=== PATIENT | male | born 1945 | race Caucasian/White ===

== ENCOUNTER 2016-11-23 13:10 | Inpatient (IN) ==
[2016-11-23] MEDS ORDERED: SODIUM CHLORIDE 0.9% 1,000 ML IV STA ×2 (14:02→18:49)
[2016-11-23] MEDS ORDERED: ONDANSETRON 4 MG/2 ML VIAL IV STA ×2 (14:02→15:41)
--- NOTE | 2016-11-23 14:26 | CT Report ---
CT abdomen pelvis wo con Indication: Diffuse abdominal tenderness with rebound. No bowel sounds. CT ABDOMEN AND PELVIS WITHOUT CONTRAST DLP: 661 mGy*cm. One or more of the following dose reduction techniques was used: Automated exposure control, adjustment of the mA and/or kV according the patient size, or use of iterative reconstruction techniques. Comparison: None. Technique: Axial noncontrast CT images of the abdomen and pelvis were obtained. Abdomen: No small bowel dilatation shown with some scattered air-fluid levels present. Normal amount of stool and gas is shown the colon. There is diffuse inflammation surrounding the pancreas without free fluid or free air. Pancreatic parenchyma appears grossly unremarkable. Spleen is unremarkable. Absent contrast, the liver appears slightly heterogeneous. A 4 mm hypodensity in the left lobe is identified, and there are couple of calcifications as well. There is calcified debris in the gallbladder lumen. Gallbladder appears otherwise unremarkable. There is an 8 mm isodense lesion extending from the lateral portion of the right kidney, too small to further characterize. Additional hypodensities on both kidneys are present, likely cysts. The largest of these is on the left measuring 30 mm diameter. A single nonobstructing right kidney stone is present, 1 x 2 mm in size. Diffuse atheromatous disease of the aortoiliac system is present. No aneurysm. Normal appendix without inflammation. Normal heart size. 5 mm pulmonary nodule lateral left lung base noted. Bibasilar atelectasis present. There is some nodularity and a calcified granuloma within the posterior right lung base as well. The largest of these nodules is only 4 mm. Calcified granuloma lateral segment right middle lobe. Mild degenerative changes lower lumbar spine. Pelvis: Urinary bladder is contracted. Prostate is normal in size. Rectosigmoid colon appears grossly unremarkable. No free fluid or free air. No lymphadenopathy. Impression: 1. Diffuse inflammation surrounding the pancreas without evidence of pseudocyst formation, pancreatic lesion or duct dilatation. Leading differential is acute pancreatitis and clinical correlation necessary. 2. No bowel obstruction. At most, mild ileus. 3. Calcified cholelithiasis. 4. Diffusely heterogeneous liver with at least one hypodensity identified in the left lobe, [address] abdomen and pelvis with contrast. 5. 8 mm isodense lesion extending laterally from the mid right kidney, too small to further characterize. Favor hemorrhagic cyst. Additional bilateral renal cysts are identified. Three-month follow-up ultrasound or CT recommended. 6. Nonobstructing right nephrolithiasis. 7. Small bibasilar pulmonary nodules, none greater than 8 mm. Three-month follow-up necessary. PROCEDURE INTERPRETED AT [facility] DEPARTMENT OF RADIOLOGY Final Report Signed by: Luisito Mayo M.D.
[2016-11-23] MEDS ORDERED: ONDANSETRON 4 MG/2 ML VIAL ONE ×2 (14:33→15:26)
[2016-11-23 14:38] LABS: Hematocrit 44.9 VOL% (42.0-52.0); Hemoglobin 15.9 GM/DL (14.0-18.0); Immature Granulocytes % 0.3 %; Immature Granulocytes Absolute 0.02 #; Lymphocytes # 0.8 10*3/uL (1.4-4.0); Lymphocytes % 10.5 % (21.2-54.2); Mean Corpuscular HGB Conc 35.4 GM/DL (32-36); Mean Corpuscular Hemoglobin 30 PG (27-34); Mean Corpuscular Volume 83.5 FL (87-102); Monocytes # 0.4 10*3/uL (0.11-0.8); Monocytes % 5.7 % (1.7-12.7); Neutrophils # 6.4 10*3/uL (1.4-7.4); Neutrophils % 83.5 % (38.7-73.9); Platelet Count 222 T/CUMM (130-400); Red Blood Count 5.38 MC/CUMM (3.8-5.5); Red Cell Distribution Width 13.1 % (9.3-17.3); White Blood Count 7.7 T/CUMM (4-12)
[2016-11-23 15:07] LABS: Albumin 3.5 G/DL (3.4-5.0); Bilirubin,Total 2.3 MG/DL (0.2-1.0); Calcium 8.8 MG/DL (8.5-10.1); Osmolality,Calculated 279.4 MOS/KG (273-304); Potassium 3.8 MMOL/L (3.5-5.1); Total Protein 6.7 G/DL (6.4-8.3)
--- NOTE | 2016-11-23 15:17 | XRay Report ---
XR chest 1V portable Indication: Abdominal pain. Chest one view: Heart size is normal. Mediastinal contours unremarkable. No discrete infiltrates are shown. Pleural spaces are clear. Bony structures are maintained. Impression: No acute cardiopulmonary disease. PROCEDURE INTERPRETED AT [facility] DEPARTMENT OF RADIOLOGY Final Report Signed by: Luisito Mayo M.D.
[2016-11-23] MEDS ORDERED: HYDROmorphone 2 MG/1 ML VIAL ONE (15:26)
--- NOTE | 2016-11-23 15:37 | Emergency Department Note ---
Saji Rivas Manpreet, am scribing for, and in the presence of, Cullen Hamilton MD 14:09. Joy Rivas Phillip K, MD, personally performed the services described in this documentation, ascribed by Rich Lennon in my presence, and it is both accurate and complete 536 . Arrival - Arrival Chief Complaint: Abdominal / Flank Pain Stated Complaint: referred for transport from [facility] ED Nursing Triage Note: ABd pain with nausea and vomiting - right lower abd onset x 3 days - last bowel movement unknown no taking meds x 4-5 days - sent from [facility] for evaluation for possible bowel obstruction Mode of Arrival: Wheelchair Limitations: No Limitations Source: Patient Time Seen by Provider: 11/23/16 13:56 - History of Present Illness HPI Narrative: Pt is a 71 y/o male who presents to the ED with CC of Abd pain with N/V that began 3 days ago. Pt states his last BM was yesterday AM which was nml. Pt had another BM today which did not have anything. Pt had a fever yesterday of 100.4 F but recorded a body temperature of 98.1 F during triage. Pt c/o cough and worsening pain upon movement and coughing. Pt felt more pain on the bumps while en route to the ED. No other pains/complaints reported to the ED. Onset (ago): day(s) (3 Days) Consistency: constant Severity: moderate Severity scale (1-10): 3 Allergies/Adverse Reactions: Allergies Allergy/AdvReac Type Severity Reaction Status Date / Time gabapentin [From Neurontin] Allergy Severe RASH Verified 12/13/15 13:41 pregabalin [From Lyrica] Allergy Severe RASH Verified 12/13/15 13:41 Home Medications: Home Medications Medication Instructions Recorded Confirmed Type Amitriptyline [Elavil] 75 mg PO BEDTIME 11/23/16 11/23/16 History Baclofen [Baclofen] 10 mg PO TID 11/23/16 11/23/16 History Eszopiclone [Eszopiclone] 2 mg PO BEDTIME 11/23/16 11/23/16 History Furosemide [Furosemide] 40 mg PO DAILY 11/23/16 11/23/16 History Oxycodone HCl/Acetaminophen 1 each PO QID PRN 11/23/16 11/23/16 History [Oxycodone-Acetaminophen 10-325] Potassium Chloride 20 meq PO DAILY 11/23/16 11/23/16 History amLODIPine [Norvasc] 10 mg PO DAILY 11/23/16 11/23/16 History Review of System - Review of System 12 point system: reviewed and no additional remarkable complaints except as stated - Review of System Constitutional: Present: fever (Yesterday of 100.4 F). Absent: chills, diaphoresis Head/Ears/Nose/Throat: Absent: sore throat Respiratory: Present: cough (Dry cough). Absent: respiratory distress, wheezing Cardiovascular: Absent: chest pain, dyspnea on exertion Gastrointestinal: Present: abdominal pain, nausea, vomiting, constipation Genitourinary male: Absent: dysuria Musculoskeletal: Absent: arm pain, back pain, lower back pain, leg pain, neck pain, upper back pain Neurological: Absent: headache, weakness, numbness, paresthesias Medical,Surgical,& Family Hx - Medical History Cardio: History of: Hypertension Gastrointestinal: History of: GI Problems (colon cancer) Musculoskeletal: History of: Musculoskeletal Problems (chronic pain) - Social History Smoking Status: Never smoker Frequency of Alcohol Use: None Type of Drug Use: None Exam Vital Signs: Vital Signs Temperature 98.1 F 11/23/16 13:28 Pulse Rate 58 L 11/23/16 13:28 Respiratory Rate 20 11/23/16 13:28 Blood Pressure 160/82 11/23/16 13:28 O2 Sat by Pulse Oximetry 95 11/23/16 13:28 - General General appearance: alert - Head Head exam: Present: atraumatic, normocephalic, normal inspection - Eye Eye exam: Present: normal appearance, PERRL, EOMI - ENT ENT exam: Present: normal exam, normal oropharynx, mucous membranes moist, TM's normal bilaterally - Neck Neck exam: Present: normal inspection, full ROM, trachea midline. Absent: tenderness, thyromegaly - Chest Chest inspection: Present: normal inspection, symmetric chest wall rise. Absent : tenderness - Respiratory Respiratory exam: Present: normal lung sounds bilaterally. Absent: accessory muscle use - Cardiovascular Cardiovascular exam: Present: regular rate, normal rhythm, normal heart sounds. Absent: murmur, rubs, gallop - Abdominal Exam Abdominal exam: Present: soft, tenderness (Diffuse tenderness), rebound ( Rebound tenderness), diminished bowel sounds. Absent: distention, guarding, rigidity - Extremities Exam Extremities exam: Present: normal inspection, full ROM. Absent: tenderness - Back Exam Back exam: Present: normal inspection, full ROM. Absent: tenderness - Neurological Exam Neurological exam: Present: alert, oriented X3, CN II-XII intact, reflexes normal - Psychiatric Psychiatric exam: Present: normal affect, normal mood - Skin Skin exam: Present: warm, dry, intact, normal color. Absent: pallor Course Course Narrative: Patient discussed with the hospitalist. Results - Labs CBC & BMP: 11/23/16 14:18 11/23/16 14:18 Lab Results: I have reviewed the patients labs Labs: Laboratory Tests 11/23/16 14:18 WBC 7.7 RBC 5.38 Hgb 15.9 Hct 44.9 MCV 83.5 L MCH 30 MCHC 35.4 RDW 13.1 Plt Count 222 MPV 10.0 Neut % (Auto) 83.5 H Lymph % (Auto) 10.5 L Hutchinson % (Auto) 5.7 Eos % (Auto) 0.0 Baso % (Auto) 0.0 Neut # (Auto) 6.4 Lymph # (Auto) 0.8 L Hutchinson # (Auto) 0.4 Eos # (Auto) 0.0 Baso # (Auto) 0.0 Immature Gran % 0.3 Nucleated RBC % 0.0 Immature Gran # 0.02 Nucleated RBCs # 0.00 Immature Plt Fraction 0.0 Laboratory Tests 11/23/16 14:18 Sodium 140 Potassium 3.8 Chloride 104 Carbon Dioxide 30 Anion Gap 9.8 BUN 15 Creatinine 1.00 GFR Calculation 99 BUN/Creatinine Ratio 15.00 Glucose 106 Calculated Osmolality 279.4 Calcium 8.8 Total Bilirubin 2.30 H AST 453 H ALT 521 H Alkaline Phosphatase 273 H Total Protein 6.7 Albumin 3.5 Globulin 3.2 Albumin/Globulin Ratio 1.0 L Lipase 9307.0 H - Diagnostic Findings Procedure: Chest x-ray: report reviewed by me ("Chest X-ray: No acute cardiopulmonary disease."), CT Abdomen and Pelvis: report reviewed by me ("CT Abd/Pel w/o Con: 1. Diffuse inflammation surrounding the pancreas without evidence of pseudocyst formation, pancreatic lesion or duct dilation. Leading differential is acute pancreatitis and clinical correlation necessary. 2. No bowel obstruction. At most, mild ileus. 3. Calcified cholelithiasis. 4. Diffusely heterogeneous liver with at least one hypodensity identified in the left lobe, [address] abdomen and pelvis with contrast. 5. 8 mm isodense lesion extending laterally from the mid right kideny, too small to further characterize. Favor hemorrhagic cyst. Additional bilateral renal cysts are identified. Three-month follow-up ultrasound or CT recommended. 6. Nonobstructing right nephrolithiasis. 7. Small bibasilar pulmonary nodules, none greater than 8 mm. Three-month follow-up necessary.) Disposition Clinical Impression: Pancreatitis, Cholelithiasis Case discussed with: patient, patient's family Disposition: Still a Patient Condition: Guarded Additional Instructions: Admit to the hospitalist and consult GI and surgery.
[2016-11-23] MEDS ORDERED: HYDROmorphone 2 MG/1 ML VIAL IV STA (15:41)
[2016-11-23] MEDS ORDERED: ONDANSETRON 4 MG/2 ML VIAL IV PRN (16:43)
[2016-11-23] MEDS ORDERED: LORazepam 2 MG/1 ML VIAL IV PRN (16:43)
[2016-11-23] MEDS ORDERED: PROMETHAZINE 25 MG/1 ML VIAL IM PRN (16:43)
[2016-11-23] MEDS ORDERED: diphenhydrAMINE CAP 25 MG CAPSULE PO PRN (16:49)
[2016-11-23] MEDS ORDERED: ZALEPLON 5 MG CAPSULE PO PRN (16:49)
[2016-11-23] MEDS ORDERED: guaiFENesin/DM ER 600-30 MG TABLET PO PRN (16:49)
--- NOTE | 2016-11-23 17:01 | Hospitalist History & Physical ---
Assessment and Plan - Time spent with patient Time spent with patient: Greater than 30 minutes (1) Acute pancreatitis due to calculus of common bile duct Status: Acute Assessment and plan: 71-year-old white male with history of chronic pain, hypertension, and colon cancer admitted by the hospitalist service with acute pancreatitis with elevated LFTs. Patient's pancreatitis most likely gallstone in nature. He does have elevated LFTs. We will go ahead and consult Dr. Hightower from GI for ERCP. We will also have him evaluate the nodules found in the left lobe of the liver. Patient may need biopsy during cholecystectomy. Patient will be kept n.p.o. until his abdominal pain improves. He will be allowed ice chips and sips of water with his medicines. He has been started on aggressive IV fluids, antibiotics, pain, and nausea control. Patient already takes Percocet 4 times daily for his chronic back pain and so we will add Dilaudid for breakthrough pain. Can consult surgery in the morning for cholecystectomy once pancreatitis resolves. Patient also has some cough and congestion with coarseness in his chest to auscultation. We will go ahead and start some duo nebs and Flonase. Patient also found to have some pulmonary nodules on CT scan. Will discuss this with Dr. Harper to see if pulmonary consult is necessary. Dr. Harper we will see and examined patient and further recommendations to follow. Current Visit: Yes (2) Elevated liver enzymes Status: Acute Current Visit: Yes (3) Pulmonary nodules Status: Acute Current Visit: Yes (4) Cough Status: Acute Current Visit: Yes (5) Liver lesion, left lobe Status: Acute Current Visit: Yes (6) Kidney lesion Status: Acute Current Visit: Yes (7) Hypertension Status: Acute Current Visit: Yes (8) Chronic back pain Status: Acute Current Visit: Yes History of Present Illness Chief complaint: Abdominal pain History of present illness: Mr. Colbert is a 71 year old white male with history of chronic back pain, hypertension, and colectomy for colon cancer presenting to the ED with a 3 day history of abdominal pain associated with nausea and vomiting. Patient states he had a cold started about 2 weeks ago with it keeps getting worse and is moved to his chest. He states that his abdomen started hurting 2 or 3 days ago and he was nauseated and has been able to eat. Patient states he has been forcing his medicines down. Patient states he vomited this morning and went to a satellite clinic in [place]. Nurse practitioner there told him to go to the emergency room. Patient is afebrile and his white count is normal. He has elevated LFTs with a total bilirubin of 2.3, AST 453, ALT 521, and alkaline phosphatase 273. Patient's lipase is also elevated at 9307. A noncontrast CT done in the ED show acute pancreatitis without pseudocyst formation, mild ileus , cholelithiasis, hypodensity in the left lobe of the liver, lesion in the right kidney with a possible hemorrhagic cyst, nonobstructing right kidney stone , and small bibasilar pulmonary nodules. Upon exam patient is obviously nauseated and his abdomen is soft and very tender diffusely throughout the abdomen but worse in the right upper epigastric and left upper quadrants. Patient denies headache, chest pain, constipation or diarrhea, or lower extremity edema. Patient feels hot and dry and he is complaining of a cough and chest tightness when he coughs. Patient sees Dr. 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 Dr. Matthews is his general port practitioner. After discussion with Dr. Hamilton the ED physician and Dr. Harper the admitting hospitalist, it was agreed patient will be admitted for further evaluation and treatment. Patient's medicines have been reconciled and he is a full code. Home Medications Medication Instructions Recorded Confirmed Type Amitriptyline [Elavil] 75 mg PO BEDTIME 11/23/16 11/23/16 History Baclofen [Baclofen] 10 mg PO TID 11/23/16 11/23/16 History Eszopiclone [Eszopiclone] 2 mg PO BEDTIME 11/23/16 11/23/16 History Furosemide [Furosemide] 40 mg PO DAILY 11/23/16 11/23/16 History Oxycodone HCl/Acetaminophen 1 each PO QID PRN 11/23/16 11/23/16 History [Oxycodone-Acetaminophen 10-325] Potassium Chloride 20 meq PO DAILY 11/23/16 11/23/16 History amLODIPine [Norvasc] 10 mg PO DAILY 11/23/16 11/23/16 History Allergies Allergy/AdvReac Type Severity Reaction Status Date / Time gabapentin [From Neurontin] Allergy Severe RASH Verified 12/13/15 13:41 pregabalin [From Lyrica] Allergy Severe RASH Verified 12/13/15 13:41 Medical,Surgical,& Family Hx - Medical History Cardio: History of: Hypertension Gastrointestinal: History of: GI Problems (colon cancer) Musculoskeletal: History of: Musculoskeletal Problems (chronic pain) - Surgical History Abdominal Surgeries: Surgical HX of: Abdominal Surgery Orthopedic Surgeries: Surgical HX of;: Orthopedic Surgery - Family History Family History: Reports;: Family Heart Disease - Social History Smoking Status: Never smoker Frequency of Alcohol Use: None Type of Drug Use: None Marital Status: Lives With:: Alone Functional capacity: independent ambulation Review of systems: A complete 10 system review of systems was obtained and pertinent positives and negatives per HPI Exam - Constitutional Vitals: Period Temp Pulse Resp BP Sys/Garber Pulse Ox Last 24 Hr 98.1 F-98.1 F 51-58 18-20 157-162/81-86 93-95 Exam: Constitutional System: Mild distress. No tremulousness. Head: Normocephalic, atraumatic. Ears, Nose and Throat System: No evidence of Otitis or Mastoiditis. No epistaxis or discharge Eyes System: Pupils equal, round, and reactive. Extraocular muscles intact. Neck: Supple, without adenopathy, No jugular venous distention. No thyromegaly, neck mass, or prior surgery apparent. Respiratory System: Chest coarse left greater than right to auscultation. Cardiovascular System: Heart with regular rate and rhythm. No murmur. GI System: Abdomen soft, moderately tender diffusely throughout but worse in the right upper and left upper quadrants. Normo active bowel sounds present. Musculoskeletal System: limbs with no pedal edema. Full distal pulses. Neurological System: No discernable sensory deficit. No aphasia Psychiatric System: Conversation is rational Results - Labs CBC & BMP: 11/23/16 14:18 11/23/16 14:18 Lab Results: I have reviewed the past 24 hour labs - Diagnostic Findings Procedure: CT Abdomen and Pelvis: report reviewed by me (Diffuse inflammation around the pancreas without evidence of pseudocyst formation, pancreatic lesion or duct dilation correlating with acute pancreatitis. No bowel obstruction, mild ileus. Calcified cholelithiasis, diffusely heterogeneous liver with at least one hypodensity identified in the left lobe 4 mm in diameter. 8 mm isodense lesion extending laterally from the mid right kidney too small to further characterize. Favors hemorrhagic cyst. Additional bilateral renal cysts identified. Nonobstructing right nephrolithiasis. Small bibasilar pulmonary nodules) Quality Measures - VTE Contraindication to Pharmacological VTE Prophylaxis: High Risk of Bleeding
[2016-11-23 17:10] LABS: Apearance,Urine CLEAR (Clear); Bilirubin,Urine Negative (Negative); Blood, Urine Negative (Negative); Glucose,Urine (UA) Negative (Negative); Ketones,Urine 5 mg/dL (Negative); Nitrite,Urine Negative (Negative); Protein,Urine 30 MG/DL; RBC,Urine 1 /HPF (0-4); Urine Color Amber (Yellow); Urine Specific Gravity 1.019 (1.001-1.035); WBC,Urine 1 /HPF (0-6)
[2016-11-23 17:17] LABS: INR 1.1; PT Patient Result 11.3 SECS
[2016-11-23] MEDS: LACTATED RINGERS 1,000 ML IV SCH (18:21)
--- NOTE | 2016-11-23 18:26 | Ultrasound Report ---
US right upper quadrant Indication: Abdominal pain. ULTRASOUND ABDOMEN, limited Comparison: None Findings: Liver: Unremarkable Gallbladder: Multiple mobile stones are present. Positive sonographic Cole sign. 6 mm tall bladder wall. Common bile duct: 7 mm Pancreas: Unremarkable Right kidney: 12.9 cm length. No mass, cyst, calcification or obstruction Impression: Cholelithiasis with secondary findings of cholecystitis. 7 mm common bile duct is slightly dilated. PROCEDURE INTERPRETED AT [facility] DEPARTMENT OF RADIOLOGY Final Report Signed by: Luisito Mayo M.D.
[2016-11-23] MEDS: PANTOPRAZOLE 40 MG VIAL IV SCH (19:19)
[2016-11-23] MEDS: ALBUTEROL/IPRATROPIUM 3 ML NEB RESP TX SCH (19:20)
[2016-11-23] MEDS: amLODIPine 10 MG TABLET PO SCH (20:41)
[2016-11-23] MEDS: BACLOFEN 10 MG TABLET PO SCH (20:41)
[2016-11-23] MEDS: AMITRIPTYLINE 75 MG TABLET PO SCH (20:42)
[2016-11-23] MEDS: HYDROmorphone 2 MG/1 ML VIAL IV PRN (20:42)
[2016-11-23] MEDS: ZALEPLON 5 MG CAPSULE PO SCH (20:42)
[2016-11-23] MEDS: PIPERACILLIN/TAZOBACTAM 3,375 MG in SODIUM CHLORIDE 0.9% 100 ML IV SCH (20:42)
[2016-11-24] MEDS: LACTATED RINGERS 1,000 ML IV SCH ×3 (00:05→13:09)
[2016-11-24] MEDS: ALBUTEROL/IPRATROPIUM 3 ML NEB RESP TX SCH ×5 (00:27→20:19)
[2016-11-24] MEDS: PIPERACILLIN/TAZOBACTAM 3,375 MG in SODIUM CHLORIDE 0.9% 100 ML IV SCH ×2 (04:36→14:42)
[2016-11-24] MEDS: ACETAMINOPHEN 325 MG TABLET PO PRN ×4 (04:45→20:57)
[2016-11-24] MEDS: HYDROmorphone 2 MG/1 ML VIAL IV PRN ×3 (04:45→16:20)
[2016-11-24 07:35] LABS: Basophils % 0.2 % (0.0-0.8); Hematocrit 42.3 VOL% (42.0-52.0); Hemoglobin 14.5 GM/DL (14.0-18.0); Immature Granulocytes % 0.5 %; Immature Granulocytes Absolute 0.05 #; Lymphocytes # 0.8 10*3/uL (1.4-4.0); Lymphocytes % 8.4 % (21.2-54.2); Mean Corpuscular HGB Conc 34.3 GM/DL (32-36); Mean Corpuscular Hemoglobin 29 PG (27-34); Mean Corpuscular Volume 85.3 FL (87-102); Mean Platelet Volume 9.8 FL (9.6-12.0); Monocytes # 0.6 10*3/uL (0.11-0.8); Monocytes % 6.6 % (1.7-12.7); Neutrophils # 8.2 10*3/uL (1.4-7.4); Neutrophils % 84.3 % (38.7-73.9); Platelet Count 209 T/CUMM (130-400); Red Blood Count 4.96 MC/CUMM (3.8-5.5); Red Cell Distribution Width 13.1 % (9.3-17.3); White Blood Count 9.7 T/CUMM (4-12)
[2016-11-24 08:08] LABS: Bilirubin,Total 1.4 MG/DL (0.2-1.0); Magnesium 2.6 MG/DL (1.8-2.4); Osmolality,Calculated 278.4 MOS/KG (273-304); Potassium 3.7 MMOL/L (3.5-5.1); Total Protein 5.7 G/DL (6.4-8.3)
[2016-11-24] MEDS: FLUTICASONE 50 MCG NASAL SPRAY 16 GM BOTTLE BOTH NARES SCH (09:22)
[2016-11-24] MEDS: PANTOPRAZOLE 40 MG VIAL IV SCH (09:22)
[2016-11-24] MEDS: POTASSIUM CHLORIDE 20 MEQ TABLET PO SCH (09:23)
[2016-11-24] MEDS: BACLOFEN 10 MG TABLET PO SCH ×4 (09:23→20:58)
[2016-11-24] MEDS: amLODIPine 10 MG TABLET PO SCH (09:23)
[2016-11-24] MEDS: ONDANSETRON 4 MG/2 ML VIAL IV PRN ×2 (09:42→16:19)
--- NOTE | 2016-11-24 10:13 | Gastrointestinal Consult Note ---
<Lorene Valderrama - Last Filed: 11/24/16 11:23> Assessment and Plan (1) Abdominal pain Status: Acute Assessment and plan: 11/24-3 day history of abdominal pain with associated nausea and vomiting with findings of elevated LFTs and lipase. CT of abdomen without contrast as well as ultrasound findings noted as below. Febrile today at 101.1. Plan for to proceed with ERCP today. Plan an addendum to follow by Dr. Hightower. Current Visit: Yes History of Present Illness Chief complaint: Abdominal pain History of present illness: Mr. Colbert is a 71 year old male who was admitted to the hospital yesterday afternoon with 3 day history of moderate to severe abdominal pain with nausea vomiting. Patient's daughter is at bedside, who is a nurse, and assist in history taking. Patient is unable to provide very much information due to his acute nature of his pain at this time. Patient reportedly was in his usual state of health until 3 days ago when he had a fairly sudden onset of abdominal pain in his upper abdomen that radiated across and into his back pain. Shortly after onset of pain patient became nauseated had some episodes of vomiting as well. Patient has been unable to eat or drink anything due to the nausea. He denies any fever chills during that time prior to coming to the hospital. Patient was seen at a clinic and the nurse practitioner that time instructed him to come the emergency room due to the nature of his pain. Upon arrival to the emergency room, patient had a CT scan without contrast which showed diffuse inflammation of the pancreas without evidence of pseudocyst or ductal dilation, calcified cholelithiasis, 4 mm hypodensity area in the left lobe of the liver. Patient also had abdominal ultrasound which showed cholelithiasis with cholecystitis and common bile duct mildly dilated at 7 mm. Patient is also noted to have a bilirubin of 2.3, AST of 453, ALT 521, and alkaline phosphatase of 273. Patient also had a lipase of 9000 on admission however this is trended down today to 1600. LFTs are also noted to be trending downward at this time. Patient was admitted with no leukocytosis noted however he did run 101.1 temperature this morning. He is having moderate to severe abdominal pain with inability to assess patient well due to his pain level. Patient does have a history of colon cancer diagnosed in [address] Shannon at [facility] and underwent a colectomy by Dr. Headley with no follow-up radiation and chemotherapy. Reportedly his PET scan 6 months later was clear however he has had no repeat colonoscopy since this time. Home Medications Medication Instructions Recorded Confirmed Type Amitriptyline [Elavil] 75 mg PO BEDTIME 11/23/16 11/23/16 History Baclofen [Baclofen] 10 mg PO TID 11/23/16 11/23/16 History Eszopiclone [Eszopiclone] 2 mg PO BEDTIME 11/23/16 11/23/16 History Furosemide [Furosemide] 40 mg PO DAILY 11/23/16 11/23/16 History Oxycodone HCl/Acetaminophen 1 each PO QID PRN 11/23/16 11/23/16 History [Oxycodone-Acetaminophen 10-325] Potassium Chloride 20 meq PO DAILY 11/23/16 11/23/16 History amLODIPine [Norvasc] 10 mg PO DAILY 11/23/16 11/23/16 History Allergies Allergy/AdvReac Type Severity Reaction Status Date / Time gabapentin [From Neurontin] Allergy Severe RASH Verified 12/13/15 13:41 pregabalin [From Lyrica] Allergy Severe RASH Verified 12/13/15 13:41 Medical,Surgical,& Family Hx - Medical History Cardio: History of: Hypertension Gastrointestinal: History of: GI Problems (colon cancer) Musculoskeletal: History of: Musculoskeletal Problems (chronic pain) - Surgical History Abdominal Surgeries: Surgical HX of: Abdominal Surgery Orthopedic Surgeries: Surgical HX of;: Orthopedic Surgery - Family History Family History: Reports;: Family Heart Disease - Social History Smoking Status: Never smoker Frequency of Alcohol Use: None Type of Drug Use: None 12 point system: reviewed and no additional remarkable complaints except as stated - Constitutional Constitutional: Present: as per HPI, fever(s) - EENT Eyes: Present: as per HPI Ears: Present: as per HPI Nose, mouth and throat: Present: as per HPI - Cardiovascular Cardiovascular: Present: as per HPI - Respiratory Respiratory: Present: as per HPI - Gastrointestinal Gastrointestinal: Present: as per HPI, abdominal pain, nausea, vomiting - Genitourinary Genitourinary: Present: as per HPI - Musculoskeletal Musculoskeletal: Present: as per HPI, back pain - Neurological Neurological: Present: as per HPI - Psychiatric Psychiatric: Present: as per HPI - Endocrine Endocrine: Present: as per HPI - Hematologic/Lymphatic Hematologic/Lymphatic: Present: as per HPI Exam - Constitutional Vitals: Period Temp Pulse Resp BP Sys/Garber Pulse Ox Last 24 Hr 97.6 F-101.1 F 50-73 16-20 103-162/57-93 93-98 General appearance: normal weight, no acute distress - Head Head exam: Present: normal inspection, normocephalic - Eye Eye exam: Present: other (Lids and conjunctive are unremarkable). Absent: scleral icterus - ENT ENT exam: Present: normal exam, normal oropharynx - Neck Neck exam: Present: normal inspection - Respiratory Respiratory exam: Present: clear to auscultation bilaterally. Absent: rales, rhonchi, wheezes - Cardiovascular Cardiovascular exam: Present: regular rate and rhythm. Absent: diastolic murmur , JVD, systolic murmur - GI/Abdominal GI/Abdominal exam: Present: normal bowel sounds, soft. Absent: ascites, distended, mass, organomegaly, tenderness - Extremities Exam Extremities exam: Present: normal inspection, full ROM - Back Exam Back exam: Present: normal inspection - Neurological Exam Neurological exam: Present: alert, oriented X3 - Psychiatric Psychiatric exam: Present: normal affect, normal mood - Skin Skin exam: Present: normal color, warm, dry Results - Labs CBC & BMP: 11/24/16 07:16 11/24/16 07:16 Lab Results: I have reviewed the past 24 hour labs - Diagnostic Findings Procedure: CT Abdomen and Pelvis: report reviewed by me, Ultrasound: report reviewed by me Quality Measures - VTE Contraindication to Pharmacological VTE Prophylaxis: High Risk of Bleeding <Leo Hightower - Last Filed: 11/24/16 12:52> History of Present Illness History of present illness: Mr. Colbert is a 71 year old male Exam - Constitutional Vitals: Period Temp Pulse Resp BP Sys/Garber Pulse Ox Last 24 Hr 97.6 F-101.1 F 50-73 16- 103-162/57-93 93-98 Results - Labs CBC & BMP: 11/24/16 07:16 11/24/16 07:16
--- NOTE | 2016-11-24 11:12 | Hospitalist Progress Note ---
Assessment and Plan - Time spent with patient Time spent with patient: Greater than 30 minutes (1) Pancreatitis Status: Acute Current Visit: Yes (2) Cholelithiasis Status: Acute Current Visit: Yes (3) Acute pancreatitis due to calculus of common bile duct Status: Acute Current Visit: Yes (4) Elevated liver enzymes Status: Acute Current Visit: Yes (5) Pulmonary nodules Status: Acute Current Visit: Yes (6) Liver lesion, left lobe Status: Acute Current Visit: Yes (7) Kidney lesion Status: Acute Current Visit: Yes (8) Hypertension Status: Acute Current Visit: Yes (9) Abdominal pain Status: Acute Assessment and plan: Continue current pain management Send blood cultures, continue IV Zosyn which she is already been started. Gastroenterology follow-up, ERCP likely when more stable. Liver biopsy of nodules at some point since daughter does know what he do not to increase admission. IV fluid hydration while n.p.o., continue IV Protonix DVT prophylaxis Current Visit: Yes Hospitalist: Subjective Interval history: Being managed for acute gallstone pancreatitis, still significant amount of pain. Patient with known history of colon cancer, CT findings of liver nodules noted concerning for metastases, however daughter stated that she does not want any biopsy at this time even if he is going to have ERCP. Initially planned for possible ERCP today, but may not be having it done today Fever with T-max of 101.1F at about 4 AM today Exam - Constitutional Vitals: Period Temp Pulse Resp BP Sys/Garber Pulse Ox Last 24 Hr 97.6 F-101.1 F 50-73 16-20 103-162/57-93 93-98 Exam: Constitutional System: Drowsy after pain medication, arousable. Head: Normocephalic, atraumatic. Ears, Nose and Throat System: No no significant abnormal findings Eyes System: Pupils equal, round, and reactive. Extraocular muscles intact. Neck: Supple, without adenopathy, No jugular venous distention. No thyromegaly, neck mass, or prior surgery apparent. Respiratory System: Chest coarse left greater than right to auscultation. Cardiovascular System: Heart with regular rate and rhythm. No murmur. GI System: Abdomen soft, moderately tender diffusely throughout but worse in the right upper and left upper quadrants. Normo active bowel sounds present. Musculoskeletal System: limbs with no pedal edema. Full distal pulses. Neurological System: No discernable sensory deficit. No aphasia Psychiatric System: Conversation is rational Results - Labs CBC & BMP: 11/24/16 07:16 11/24/16 07:16 Lab Results: I have reviewed the past 24 hour labs - Diagnostic Findings Procedure: CT Abdomen and Pelvis: report reviewed by me, image reviewed by me, Ultrasound: report reviewed by me Quality Measures - VTE Contraindication to Pharmacological VTE Prophylaxis: High Risk of Bleeding
[2016-11-24] MEDS ORDERED: fentaNYL 100 MCG/2 ML VIAL ONE (12:47)
[2016-11-24] MEDS ORDERED: MIDAZOLAM 2 MG/2 ML VIAL ONE (12:47)
[2016-11-24] MEDS ORDERED: PROPOFOL 200 MG/20 ML VIAL IV ONE (12:55)
[2016-11-24] MEDS ORDERED: ONDANSETRON 4 MG/2 ML VIAL ONE (12:55)
[2016-11-24] MEDS ORDERED: LIDOCAINE 2% 5 ML VIAL ONE (12:55)
--- NOTE | 2016-11-24 13:18 | Operative Note ---
Date of procedure: 11/24/16 Pre-op diagnosis: Gallstone pancreatitis was suspected choledocholithiasis Procedure: Endoscopic retrograde cholangiopancreatography with sphincterotomy and balloon stone extraction. 71-year-old gentleman admitted with 3 day history of abdominal pain noted to have elevated lipase elevated liver test and suspicion for choledocholithiasis. Now for ERCP to further evaluate. Informed consent was obtained from the patient. He was sedated with MAC anesthesia per anesthesia protocol. Patient placed in prone position the Olympus flexible video duodenal scope was inserted blindly and the oral cavity advanced into the esophagus. Subsequently under direct vision was advanced through the esophagus stomach pylorus to the level of the duodenum. He has a small ampulla. Sphincterotome was utilized and the pancreatic duct was opacified with no findings in the head of the pancreas or body of the pancreas. We did not get any full pancreatogram was we are trying to limit contrast exposure. With some difficulty we were able to cannulate the common bile duct which findings of suspected choledocholithiasis with some refractive debris. No biliary obstruction was identified. Cystic duct was patent cholelithiasis was noted. It was elected to proceed with sphincterotomy and 8 mm sphincterotomy was performed uneventfully with good hemostasis. Subsequently a balloon catheter was inserted into the biliary tree and inflated 8 mm port out 2 with removal of some stone fragments. No residual stone debris was noted in the common bile duct. The procedure was terminated placed our procedure well his discharge recovery in good condition. Postop diagnosis: 1. Choledocholithiasis with successful ERCP sphincterotomy and balloon stone extraction. Will monitor for complications and recommend proceeding with cholecystectomy per surgery's schedule. Anesthesia: MAC Surgeon / Physician: Leo Hightower Estimated blood loss: none Specimens: none sent Condition: stable Disposition: post procedure unit Results - Labs CBC & BMP: 11/24/16 07:16 11/24/16 07:16 Discharge Plan - Discharge Medications No Action Potassium Chloride 20 meq PO DAILY Amitriptyline [Elavil] 75 mg PO BEDTIME Furosemide [Furosemide] 40 mg PO DAILY Eszopiclone [Eszopiclone] 2 mg PO BEDTIME Baclofen [Baclofen] 10 mg PO TID amLODIPine [Norvasc] 10 mg PO DAILY Oxycodone HCl/Acetaminophen [Oxycodone-Acetaminophen 10-325] 1 each PO QID PRN PRN Reason: Pain - Follow Up or Referral - Forms/Instructions
[2016-11-24] MEDS ORDERED: GLUCAGON 1 MG VIAL ONE (13:26)
--- NOTE | 2016-11-24 13:27 | Anesthesia Post-Op ---
Anesthesia Post OP - Post Ansesthetic Evaluation Patient seen in post op: Yes Resp: within normal limits CV: within normal limits Mental: within normal limits Temp: within normal limits [id number]: within normal limits Nausea and Vomiting: within normal limits Pain: within normal limits
--- NOTE | 2016-11-24 14:52 | Fluoroscopy Report ---
Exam: [place] ERCP w sphincterotomy Date: 11/24/2016 11:20 AM Indication: Elevated liver function test dilated CBD elevated lipase Comparison: Right upper quadrant sonogram 11/23/[address] scan same date Findings: 60 cc of contrast 5.22 minutes fluoroscopy time. Contrast was instilled with filling of the common bile duct. Left and right biliary radicals are demonstrated. The ducts are slightly dilated. There appears to be some filling defects present. Small amount of debris is present. Sphincterotomy was performed. Pancreatic duct was demonstrated with no obvious abnormalities. Only the proximal aspect of the pancreas duct was demonstrated. Fluoroscopy time provided to Dr. Leo Hightower M.D. A total of 16 images were obtained Impression: 1. Satisfactory sphincterotomy and balloon sweep with no significant residual debris present or stones in the common bile duct. PROCEDURE INTERPRETED AT [facility]PART[facility] OF RADIOLOG[facility] Final Report Signed by: Dr. Kingsley Kolb
[2016-11-24] MEDS: DEXTROSE 5% NACL 0.45% 1,000 ML IV SCH (15:05)
--- NOTE | 2016-11-24 15:29 | General Surgery Consult Note ---
Assessment and Plan (1) Abdominal pain Status: Acute Assessment and plan: This patient has evidence of biliary pancreatitis. ERCP was successful today with sphincterotomy and stone extraction. I have recommended interval cholecystectomy to the patient. I have discussed the risks, benefits, and alternatives of laparoscopic cholecystectomy with the patient and also the possibility of open cholecystectomy. The expected outcomes have been reviewed. In particular, I discussed the risk of bleeding, infection, hernias of the abdominal wall, injury to the intestines or liver, pancreatitis, dropped or retained stones in the abdomen, bile leak, and bile duct injury. The patient's questions have been answered. We will monitor the patient's pancreatitis and once it has resolved adequately we will plan on doing the laparoscopic cholecystectomy at that time. Current Visit: Yes History of Present Illness Chief complaint: Abdominal pain History of present illness: Mr. Colbert is a 71 year old male admitted with abdominal pain and nausea and vomiting. He had evidence of biliary pancreatitis and was admitted and placed on bowel rest. ERCP today demonstrated choledocholithiasis with successful sphincterotomy and stone retrieval. There were stones in the gallbladder seen on ERCP and the patient had secondary signs of gallbladder inflammation on prior ultrasound. Patient does have a history of colon cancer and had a [place] [address] Paddy wolf. There is a 4 mm area on his liver on the initial CT scan that it is unclear what it represents and the CT was done without IV contrast so it is difficult to completely characterize this. Home Medications Medication Instructions Recorded Confirmed Type Amitriptyline [Elavil] 75 mg PO BEDTIME 11/23/16 11/23/16 History Baclofen [Baclofen] 10 mg PO TID 11/23/16 11/23/16 History Eszopiclone [Eszopiclone] 2 mg PO BEDTIME 11/23/16 11/23/16 History Furosemide [Furosemide] 40 mg PO DAILY 11/23/16 11/23/16 History Oxycodone HCl/Acetaminophen 1 each PO QID PRN 11/23/16 11/23/16 History [Oxycodone-Acetaminophen 10-325] Potassium Chloride 20 meq PO DAILY 11/23/16 11/23/16 History amLODIPine [Norvasc] 10 mg PO DAILY 11/23/16 11/23/16 History Allergies Allergy/AdvReac Type Severity Reaction Status Date / Time gabapentin [From Neurontin] Allergy Severe RASH Verified 12/13/15 13:41 pregabalin [From Lyrica] Allergy Severe RASH Verified 12/13/15 13:41 Medical,Surgical,& Family Hx - Medical History Cardio: History of: Hypertension Neurology: No history of: Seizures Gastrointestinal: History of: GI Problems (colon cancer) Musculoskeletal: History of: Musculoskeletal Problems (chronic pain) - Surgical History Abdominal Surgeries: Surgical HX of: Abdominal Surgery Orthopedic Surgeries: Surgical HX of;: Orthopedic Surgery - Family History Family History: Reports;: Family Heart Disease - Social History Smoking Status: Never smoker Frequency of Alcohol Use: None Type of Drug Use: None - Constitutional Constitutional: Present: as per HPI - EENT Nose, mouth and throat: Present: as per HPI - Cardiovascular Cardiovascular: Present: as per HPI - Respiratory Respiratory: Present: as per HPI - Gastrointestinal Gastrointestinal: Present: as per HPI - Genitourinary Genitourinary: Present: as per HPI - Musculoskeletal Musculoskeletal: Present: as per HPI - Neurological Neurological: Present: as per HPI - Endocrine Endocrine: Present: as per HPI Hematologic/Lymphatic: Present: as per HPI Exam - Constitutional Vitals: Period Temp Pulse Resp BP Sys/Garber Pulse Ox Last 24 Hr 97.6 F-101.1 F 50-78 16-20 103-160/57-93 93-98 General appearance: no acute distress, over weight - Head Head exam: Present: normal inspection, normocephalic - Eye Eye exam: Present: EOMI. Absent: scleral icterus Pupils: Present: MIGUEL - ENT ENT exam: Present: normal exam Mouth exam: Present: normal external inspection, normal voice - Neck Neck exam: Present: normal inspection, trachea midline - Respiratory Respiratory exam: Present: clear to auscultation bilaterally. Absent: accessory muscle use, chest wall tenderness - Cardiovascular Cardiovascular exam: Present: RRR. Absent: systolic murmur, tachycardia - GI/Abdominal GI/Abdominal exam: Present: normal bowel sounds, guarding, tenderness (The patient is tender in the midepigastric region and right upper quadrant. No peritoneal signs. There is some voluntary guarding.), soft - Extremities Exam Extremities exam: Present: normal inspection, normal capillary refill - Back Exam Back exam: Present: normal inspection - Neurological Exam Neurological exam: Present: alert, oriented X3 Speech: Present: normal - Skin Skin exam: Present: normal color, warm Quality Measures - VTE Contraindication to Pharmacological VTE Prophylaxis: High Risk of Bleeding Results - Labs CBC & BMP: 11/24/16 07:16 11/24/16 07:16
--- NOTE | 2016-11-24 15:38 | XRay Report ---
XR chest 1V portable Indication: Wheezing. Shortness of breath. Chest one view: Comparison yesterday shows worsening interstitial prominence of both lungs diffusely, with bibasilar atelectasis and pulmonary hypoinflation now present. Cardiomegaly is stable. Central pulmonary arteries are slightly prominent. Impression: Pulmonary hypoinflation. Evidence of mild CHF decompensation. PROCEDURE INTERPRETED AT [facility] DEPARTMENT OF RADIOLOGY Final Report Signed by: Luisito Mayo M.D.
[2016-11-24] MEDS: ZALEPLON 5 MG CAPSULE PO SCH (20:57)
[2016-11-24] MEDS: AMITRIPTYLINE 75 MG TABLET PO SCH (20:58)
[2016-11-25] MEDS: PIPERACILLIN/TAZOBACTAM 3,375 MG in SODIUM CHLORIDE 0.9% 100 ML IV SCH ×4 (00:03→23:07)
[2016-11-25] MEDS: ONDANSETRON 4 MG/2 ML VIAL IV PRN ×5 (00:06→20:41)
[2016-11-25] MEDS: HYDROmorphone 2 MG/1 ML VIAL IV PRN ×5 (00:06→20:40)
[2016-11-25] MEDS: ALBUTEROL/IPRATROPIUM 3 ML NEB RESP TX SCH ×4 (01:07→19:38)
[2016-11-25] MEDS: ACETAMINOPHEN 325 MG TABLET PO PRN ×4 (06:23→23:39)
[2016-11-25 06:35] LABS: Albumin 2.7 G/DL (3.4-5.0); Bilirubin,Total 2.5 MG/DL (0.2-1.0); Calcium 8.5 MG/DL (8.5-10.1); Osmolality,Calculated 275.5 MOS/KG (273-304); Potassium 3.9 MMOL/L (3.5-5.1); Total Protein 5.7 G/DL (6.4-8.3)
[2016-11-25 07:12] LABS: Basophils % 0.2 % (0.0-0.8); Hemoglobin 14.4 GM/DL (14.0-18.0); Immature Granulocytes % 0.4 %; Immature Granulocytes Absolute 0.04 #; Lymphocytes # 0.8 10*3/uL (1.4-4.0); Lymphocytes % 7.6 % (21.2-54.2); Mean Corpuscular HGB Conc 33.5 GM/DL (32-36); Mean Corpuscular Hemoglobin 29 PG (27-34); Mean Corpuscular Volume 86.9 FL (87-102); Mean Platelet Volume 10.6 FL (9.6-12.0); Monocytes % 8.7 % (1.7-12.7); Neutrophils # 9.1 10*3/uL (1.4-7.4); Neutrophils % 83.1 % (38.7-73.9); Platelet Count 217 T/CUMM (130-400); Red Blood Count 4.95 MC/CUMM (3.8-5.5); Red Cell Distribution Width 13.2 % (9.3-17.3); White Blood Count 10.9 T/CUMM (4-12)
[2016-11-25] MEDS: FLUTICASONE 50 MCG NASAL SPRAY 16 GM BOTTLE BOTH NARES SCH (09:54)
[2016-11-25] MEDS: amLODIPine 10 MG TABLET PO SCH (09:54)
[2016-11-25] MEDS: POTASSIUM CHLORIDE 20 MEQ TABLET PO SCH (09:55)
[2016-11-25] MEDS: BACLOFEN 10 MG TABLET PO SCH ×3 (09:56→20:53)
[2016-11-25] MEDS: PANTOPRAZOLE 40 MG VIAL IV SCH (09:57)
--- NOTE | 2016-11-25 09:57 | Hospitalist Progress Note ---
Assessment and Plan - Time spent with patient Time spent with patient: Greater than 30 minutes (1) Pancreatitis Status: Acute Current Visit: Yes (2) Cholelithiasis Status: Acute Current Visit: Yes (3) Acute pancreatitis due to calculus of common bile duct Status: Acute Current Visit: Yes (4) Elevated liver enzymes Status: Acute Current Visit: Yes (5) Pulmonary nodules Status: Acute Current Visit: Yes (6) Liver lesion, left lobe Status: Acute Current Visit: Yes (7) Kidney lesion Status: Acute Current Visit: Yes (8) Hypertension Status: Acute Current Visit: Yes (9) Abdominal pain Status: Acute Assessment and plan: Continue pain management, IV fluids. Follow blood cultures, continue IV Zosyn and adjust antibiotic as needed with culture report. Gastroenterology follow-up, status post ERCP, report reviewed. Surgery follow-up with possible cholecystectomy at some point. Liver biopsy of nodules at some point if still present repeat CT scan with contrast. Continue IV fluid hydration while n.p.o., continue IV Protonix DVT prophylaxis Current Visit: Yes Hospitalist: Subjective Interval history: Had ERCP and sphincterotomy done yesterday, seems to be improving in terms of pain. LFTs are trending down as well. Surgery impute appreciated, plan for cholecystectomy future. Low-grade fever is persisting, cultures are pending. Exam - Constitutional Vitals: Period Temp Pulse Resp BP Sys/Garber Pulse Ox Last 24 Hr 97.7 F-102.2 F 63-78 16-20 101-151/56-77 93-99 Exam: Constitutional System: Drowsy after pain medication, arousable. Head: Normocephalic, atraumatic. Ears, Nose and Throat System: No no significant abnormal findings Eyes System: Pupils equal, round, and reactive. Extraocular muscles intact. Neck: Supple, without adenopathy, No jugular venous distention. No thyromegaly, neck mass, or prior surgery apparent. Respiratory System: Chest coarse left greater than right to auscultation. Cardiovascular System: Heart with regular rate and rhythm. No murmur. GI System: Abdomen soft, moderately tender diffusely throughout but worse in the right upper and left upper quadrants. Normo active bowel sounds present. Musculoskeletal System: limbs with no pedal edema. Full distal pulses. Neurological System: No discernable sensory deficit. No aphasia Psychiatric System: Conversation is rational Results - Labs CBC & BMP: 11/25/16 04:53 11/25/16 04:53 Lab Results: I have reviewed the past 24 hour labs Quality Measures - VTE Contraindication to Pharmacological VTE Prophylaxis: High Risk of Bleeding
--- NOTE | 2016-11-25 17:54 | General Surgery Progress Note ---
Assessment and Plan (1) Abdominal pain Status: Acute Assessment and plan: The patient has resolving pancreatitis but is still having significant tenderness although his lipase is normal. His bilirubin is going up and this is likely due to swelling related to his sphincterotomy. I have recommended to the family that we wait another day for some of his pancreatitis and swelling to go down and possibly perform laparoscopic cholecystectomy tomorrow or may even need to delay until Sunday based on his lab work and clinical exam tomorrow. Continue n.p.o. and repeat labs in the morning Current Visit: Yes Subjective Patient reports: Present: no new complaints, feels better, still having pain, pain is less, fever (Low-grade temps overnight) Exam - Constitutional Vitals: Period Temp Pulse Resp BP Sys/Garber Pulse Ox Last 24 Hr 97.7 F-101.2 F 69-80 16-20 101-146/56-70 94-99 General appearance: no acute distress, over weight - Head Head exam: Present: normal inspection, normocephalic - Eye Eye exam: Present: EOMI. Absent: scleral icterus Pupils: Present: MIGUEL - ENT ENT exam: Present: normal exam Mouth exam: Present: normal external inspection, normal voice - Neck Neck exam: Present: normal inspection, trachea midline - Respiratory Respiratory exam: Present: clear to auscultation bilaterally. Absent: accessory muscle use, chest wall tenderness - Cardiovascular Cardiovascular exam: Present: RRR. Absent: systolic murmur, tachycardia - GI/Abdominal GI/Abdominal exam: Present: tenderness (The patient has pretty significant midepigastric tenderness and periumbilical tenderness. There is no peritoneal signs. It is less tender than yesterday overall.), soft - Extremities Exam Extremities exam: Present: normal inspection - Back Exam Back exam: Present: normal inspection - Neurological Exam Neurological exam: Present: alert, oriented X3 Speech: Present: normal - Skin Skin exam: Present: normal color, warm Results - Labs CBC & BMP: 11/25/16 04:53 11/25/16 04:53 Quality Measures - VTE Contraindication to Pharmacological VTE Prophylaxis: High Risk of Bleeding
[2016-11-25] MEDS: DEXTROSE 5% NACL 0.45% 1,000 ML IV SCH (20:44)
[2016-11-25] MEDS: AMITRIPTYLINE 75 MG TABLET PO SCH (20:53)
[2016-11-25] MEDS: ZALEPLON 5 MG CAPSULE PO SCH (20:53)
[2016-11-26] MEDS: ALBUTEROL/IPRATROPIUM 3 ML NEB RESP TX SCH ×4 (01:12→19:18)
[2016-11-26] MEDS: PIPERACILLIN/TAZOBACTAM 3,375 MG in SODIUM CHLORIDE 0.9% 100 ML IV SCH (06:22)
[2016-11-26 06:59] LABS: Albumin 2.4 G/DL (3.4-5.0); Bilirubin,Total 1.3 MG/DL (0.2-1.0); Calcium 8.2 MG/DL (8.5-10.1); Osmolality,Calculated 276.5 MOS/KG (273-304); Potassium 4.1 MMOL/L (3.5-5.1); Total Protein 5.7 G/DL (6.4-8.3)
[2016-11-26] MEDS: ONDANSETRON 4 MG/2 ML VIAL IV PRN ×3 (08:04→18:50)
[2016-11-26] MEDS: HYDROmorphone 2 MG/1 ML VIAL IV PRN ×4 (08:07→20:15)
--- NOTE | 2016-11-26 08:20 | Hospitalist Progress Note ---
Assessment and Plan - Time spent with patient Time spent with patient: Greater than 30 minutes (1) Pancreatitis Status: Acute Current Visit: Yes (2) Cholelithiasis Status: Acute Current Visit: Yes (3) Acute pancreatitis due to calculus of common bile duct Status: Acute Current Visit: Yes (4) Elevated liver enzymes Status: Acute Current Visit: Yes (5) Pulmonary nodules Status: Acute Current Visit: Yes (6) Liver lesion, left lobe Status: Acute Current Visit: Yes (7) Kidney lesion Status: Acute Current Visit: Yes (8) Hypertension Status: Acute Current Visit: Yes (9) Abdominal pain Status: Acute Assessment and plan: Continue pain management, IV fluids. Initial blood cultures are negative, but we will continue IV Zosyn. Gastroenterology follow-up, status post ERCP. LFTs trending down Surgery follow-up with possible cholecystectomy in the morning Liver biopsy of nodules at some point if still present on repeat CT scan with contrast. Continue IV fluid hydration while n.p.o., continue IV Protonix DVT prophylaxis Current Visit: Yes Hospitalist: Subjective Interval history: LFTs are continuing to trend down including bilirubin. I reviewed surgery note, tentative plan for laparoscopic cholecystectomy today. Fever has now subsided. Exam - Constitutional Vitals: Period Temp Pulse Resp BP Sys/Garber Pulse Ox Last 24 Hr 98.4 F-101.2 F 69-92 16-20 122-144/57-72 96-100 Exam: Constitutional System: Drowsy after pain medication, arousable. Head: Normocephalic, atraumatic. Ears, Nose and Throat System: No no significant abnormal findings Eyes System: No jaundice Neck: Supple, without adenopathy, No jugular venous distention. No thyromegaly, neck mass, or prior surgery apparent. Respiratory System: Chest coarse left greater than right to auscultation. Cardiovascular System: Heart with regular rate and rhythm. No murmur. GI System: Abdomen soft, tenderness has improved, still with some residual in the right upper quadrant. Normo active bowel sounds present. Musculoskeletal System: limbs with no pedal edema. Full distal pulses. Neurological System: No discernable sensory deficit. No aphasia Psychiatric System: Conversation is rational Results - Labs CBC & BMP: 11/25/16 04:53 11/26/16 05:42 Lab Results: I have reviewed the past 24 hour labs Quality Measures - VTE Contraindication to Pharmacological VTE Prophylaxis: High Risk of Bleeding Specialty Discharge - Follow Up or Referrals Follow up with: Jorge Scott MD [Physician] - 2 Weeks
[2016-11-26] MEDS ORDERED: BUPIVACAINE 0.25% 50 ML VIAL ONE (08:21)
[2016-11-26] MEDS ORDERED: TISSUE ADHESIVE 1 EACH APPLICATOR TOP ONE (08:22)
--- NOTE | 2016-11-26 08:44 | EKG Report ---
Stationary ECG Study 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
--- NOTE | 2016-11-26 09:03 | Gastrointestinal Progress Note ---
Assessment and Plan - Time spent with patient Time spent with patient: Greater than 30 minutes (1) Choledocholithiasis with acute cholecystitis Status: Acute Current Visit: Yes (2) Pancreatitis Status: Acute Current Visit: Yes (3) Other specified counseling Status: Acute Current Visit: Yes Exam (Progress Note) - Constitutional Vitals: Period Temp Pulse Resp BP Sys/Garber Pulse Ox Last 24 Hr 98.4 F-101.2 F 69-92 16-20 122-144/57-72 96-100 Results - Labs CBC & BMP: 11/25/16 04:53 11/26/16 05:42 Specialty Discharge - Follow Up or Referrals Follow up with: Jorge Scott MD [Physician] - 2 Weeks Note Addendum: Patient was in operating room when I went by to visit. Dr. Hightower will follow up with this patient tomorrow.
[2016-11-26] MEDS ORDERED: HYDROmorphone 2 MG/1 ML VIAL IM ONE ×2 (09:41→12:00)
[2016-11-26] MEDS ORDERED: HYDROmorphone 2 MG/1 ML VIAL ONE (09:43)
[2016-11-26] MEDS ORDERED: PROPOFOL 200 MG/20 ML VIAL IV ONE (10:06)
[2016-11-26] MEDS ORDERED: NEOSTIGMINE 10 MG/10 ML VIAL ONE ×2 (10:06→11:19)
[2016-11-26] MEDS ORDERED: LABETALOL 100 MG/20 ML VIAL IV ONE (10:06)
[2016-11-26] MEDS ORDERED: ROCURONIUM 100 MG/10 ML VIAL IV ONE (10:06)
[2016-11-26] MEDS ORDERED: GLYCOPYRROLATE 0.4 MG/2 ML VIAL ONE (10:06)
[2016-11-26] MEDS ORDERED: ONDANSETRON 4 MG/2 ML VIAL ONE (10:06)
[2016-11-26] MEDS: BACLOFEN 10 MG TABLET PO SCH ×3 (10:43→20:14)
--- NOTE | 2016-11-26 11:10 | Operative Note ---
Date of procedure: 11/26/16 Pre-op diagnosis: Biliary pancreatitis with acute cholecystitis Post-op diagnosis: same Procedure: Preoperative diagnosis Biliary pancreatitis Acute cholecystitis Postoperative diagnosis Same Procedures performed Laparoscopic cholecystectomy Findings Acute cholecystitis was seen. The critical view of safety was obtained prior to placing clips on the cystic duct and cystic artery. Complications None apparent Specimen Gallbladder Anesthesia GETA Blood loss 5 mL Indications Biliary pancreatitis with acute cholecystitis. The risks, benefits, and alternatives of the operation were discussed with the patient in detail, and the expected outcomes were reviewed. In particular, the risk of bowel injury, liver injury, bile duct leak and bile duct injury, as well as pancreatitis and retained or drop stones were discussed in detail. All the patient's questions were answered. She like to proceed with the operation. Description of procedure The patient was taken to the operating room and transferred to the operating table in the supine position. Pressure points were padded and SCDs were placed to bilateral lower extremities. General endotracheal anesthesia was administered. The abdomen was prepped chlorhexidine and draped sterilely. Preoperative antibiotics were administered, a timeout was performed. The abdomen was entered at Robb's point in the left upper quadrant with the Veress needle. The skin incision was made with an 11 blade scalpel after local anesthetic was administered. The abdominal wall skin was grasped with penetrating towel clips. A Veress needle was used to enter the peritoneal cavity confirmed by double click technique. Aspiration was negative. Saline drop test confirmed intraperitoneal location. The abdomen was insufflated to 15 mmHg with an initial insufflation pressure of 6 mmHg. The Veress needle was removed and an 11 mm trocar was placed blindly. The towel clip was removed. Diagnostic laparoscopy was performed. There is no evidence of Veress needle or trocar injury. There were extensive adhesions from the prior midline incision. The patient was placed in reverse Trendelenburg and left side rolled down position. Under direct visualization, and after local anesthetic was administered, 2 right subcostal 5 mm trochars were placed. Adhesions were taken down in the midline incision in order to expose the umbilicus and additional 5 mm trochars placed under direct visualization. The adhesions were taken down with scissors and cautery. The camera was then moved to the supraumbilical trocar site. The gallbladder was grasped at the fundus and infundibulum. The cystic plate peritoneum was dissected into the critical view of safety was obtained. The cystic duct and cystic artery were clipped twice initially and once laterally and divided laparoscopically with scissors between clips. Gallbladder was removed from the gallbladder fossa using hook electrocautery. The gallbladder was placed in a Endo Catch retrieval bag through the 11 mm trocar and removed through the trocar with some extension of the fascial incision due to the stones in the size of the gallbladder. The gallbladder fossa was suction irrigated until the effluent was clear. The midepigastric fascial opening was closed with a 0 Vicryl mzyyzi-al-zxmxk suture that was passed with a laparoscopic suture passer. The CO2 was released from the abdomen and the trochars were removed. The skin incisions were closed with 4-0 Monocryl subcuticular suture and sterile skin glue. The patient was awakened from anesthesia and transferred to recovery. Postoperative plan Advance diet as tolerated Pain control Anesthesia: NICKA, local Surgeon / Physician: Jorge Scott Estimated blood loss: minimal Specimens: other (gallbladder) Condition: stable Disposition: PACU Results - Labs CBC & BMP: 11/25/16 04:53 11/26/16 05:42 Discharge Plan - Discharge Data Driving: other (Do not drive or operate heavy machinery for at least 24 hours and after you are off of narcotic pain medications.) Contact your physician if you experience:: fever over 101, Difficulty voiding, Redness or swelling, Nausea/Vomiting, Shortness of breath, Bleeding, pain uncontrolled by pain medications Wound / Dressing Care Instructions: It is okay to shower. Do not scrub the incision aggressively or submerge it under water. - Discharge Medications Changed Oxycodone HCl/Acetaminophen [Oxycodone-Acetaminophen 10-325] 1 tablet PO QID PRN #20 tablet PRN Reason: Pain No Action Potassium Chloride 20 meq PO DAILY Amitriptyline [Elavil] 75 mg PO BEDTIME Furosemide [Furosemide] 40 mg PO DAILY Eszopiclone [Eszopiclone] 2 mg PO BEDTIME Baclofen [Baclofen] 10 mg PO TID amLODIPine [Norvasc] 10 mg PO DAILY - Follow Up or Referral Follow Up: Jorge Scott MD [Physician] - 2 Weeks - Forms/Instructions
[2016-11-26] MEDS ORDERED: MIDAZOLAM 2 MG/2 ML VIAL ONE (11:19)
[2016-11-26] MEDS ORDERED: SEVOFLURANE 1 UNIT/15 MINUTE INH ONE (11:19)
[2016-11-26] MEDS ORDERED: LACTATED RINGERS 1,000 ML IV ONE (11:19)
[2016-11-26] MEDS ORDERED: fentaNYL 100 MCG/2 ML VIAL ONE (11:19)
[2016-11-26] MEDS ORDERED: ONDANSETRON 4 MG/2 ML VIAL IV PRN (11:34)
[2016-11-26] MEDS ORDERED: HYDROmorphone 2 MG/1 ML VIAL IV PRN (11:34)
[2016-11-26] MEDS ORDERED: LACTATED RINGERS 1,000 ML IV SCH ×2 (12:00)
--- NOTE | 2016-11-26 12:27 | Anesthesia Post-Op ---
Anesthesia Post OP - Post Ansesthetic Evaluation Patient seen in post op: Yes Resp: within normal limits CV: within normal limits Mental: within normal limits Temp: within normal limits [id number]-[id number]: within normal limits Nausea and Vomiting: within normal limits Pain: within normal limits
[2016-11-26] MEDS: POTASSIUM CHLORIDE 20 MEQ TABLET PO SCH (13:37)
[2016-11-26] MEDS: PANTOPRAZOLE 40 MG VIAL IV SCH (13:37)
[2016-11-26] MEDS: amLODIPine 10 MG TABLET PO SCH (13:37)
[2016-11-26] MEDS: FLUTICASONE 50 MCG NASAL SPRAY 16 GM BOTTLE BOTH NARES SCH (13:37)
[2016-11-26] MEDS: DEXTROSE 5% NACL 0.45% 1,000 ML IV SCH ×2 (19:52→20:14)
[2016-11-26] MEDS: ZALEPLON 5 MG CAPSULE PO SCH (20:14)
[2016-11-26] MEDS: AMITRIPTYLINE 75 MG TABLET PO SCH (20:14)
[2016-11-26] MEDS: ACETAMINOPHEN 325 MG TABLET PO PRN (23:36)
[2016-11-27] MEDS: ALBUTEROL/IPRATROPIUM 3 ML NEB RESP TX SCH ×4 (00:37→20:05)
[2016-11-27] MEDS: HYDROmorphone 2 MG/1 ML VIAL IV PRN ×2 (01:50→10:03)
[2016-11-27] MEDS: ONDANSETRON 4 MG/2 ML VIAL IV PRN ×2 (01:52→10:04)
[2016-11-27] MEDS: POTASSIUM CHLORIDE 20 MEQ TABLET PO SCH (10:03)
[2016-11-27] MEDS: amLODIPine 10 MG TABLET PO SCH (10:03)
[2016-11-27] MEDS: DOCUSATE SODIUM 100 MG CAPSULE PO PRN (10:03)
[2016-11-27] MEDS: FLUTICASONE 50 MCG NASAL SPRAY 16 GM BOTTLE BOTH NARES SCH (10:07)
[2016-11-27] MEDS: BACLOFEN 10 MG TABLET PO SCH ×3 (10:07→20:26)
[2016-11-27] MEDS: PANTOPRAZOLE 40 MG VIAL IV SCH (10:08)
--- NOTE | 2016-11-27 10:26 | Hospitalist Progress Note ---
Assessment and Plan (1) Fever Status: Acute Assessment and plan: Could be just postoperative fever but I will check urine Current Visit: Yes (2) Acute pancreatitis due to calculus of common bile duct Status: Acute Assessment and plan: Lipase level improved and was normal yesterday Current Visit: Yes (3) Choledocholithiasis with acute cholecystitis Status: Acute Assessment and plan: Patient is status post ERCP and cholecystectomy as mentioned above. Reported nausea today I will check KUB continue to diet have diet as tolerated and as needed antinausea medication Current Visit: Yes (4) Elevated liver enzymes Status: Acute Assessment and plan: Due to biliary pancreatitis has been improving Current Visit: Yes (5) Hypertension Status: Chronic Assessment and plan: Controlled Current Visit: Yes Hospitalist: Subjective Interval history: Mr. Colbert is a 71-year-old male with history of hypertension colon cancer and chronic pain admitted with the abdominal pain associated with nausea and vomiting he was diagnosed to have acute biliary pancreatitis he had choledocholithiasis he underwent ERCP with the sphincterectomy and the stone extraction on 11/24/2016. Patient yesterday had Laparoscopic cholecystectomy. Patient reported nausea was ad alvina. able to tolerate little for the last night he had fever last night but has been afebrile since then reported some strong odor to urine. He has no bowel movement but passing gases Exam - Constitutional Vitals: Period Temp Pulse Resp BP Sys/Garber Pulse Ox Last 24 Hr 96.7 F-102.9 F 57-78 16-24 105-149/59-85 91-100 General appearance: no acute distress - Respiratory Respiratory exam: Present: clear to auscultation bilaterally. Absent: rales, rhonchi - Cardiovascular Cardiovascular exam: Present: regular rate and rhythm. Absent: tachycardia - GI/Abdominal GI/Abdominal exam: Present: normal bowel sounds, distended, tenderness ( Tenderness abdomen but no rigidity ), soft - Neurological Exam Neurological exam: Present: alert, oriented X3 Results - Labs CBC & BMP: 11/25/16 04:53 11/26/16 05:42 Lab Results: I have reviewed the past 24 hour labs Quality Measures - VTE Contraindication to Pharmacological VTE Prophylaxis: High Risk of Bleeding Specialty Discharge - Follow Up or Referrals Follow up with: Jorge Scott MD [Physician] - 2 Weeks
--- NOTE | 2016-11-27 11:03 | Gastrointestinal Progress Note ---
<Lorene Valderrama Cole - Last Filed: 11/27/16 11:01> Assessment and Plan (1) Abdominal pain Status: Acute Assessment and plan: 11/27-status post laparoscopic cholecystectomy. Decreased bowel sounds with abdominal discomfort. KUB pending this morning. Lipase unremarkable last check , LFTs trending downward. Febrile overnight now resolved. UA pending. Plan an addendum to follow by Dr. Hightower. 11/24-3 day history of abdominal pain with associated nausea and vomiting with findings of elevated LFTs and lipase. CT of abdomen without contrast as well as ultrasound findings noted as below. Febrile today at 101.1. Plan for to proceed with ERCP today. Plan an addendum to follow by Dr. Hightower. Current Visit: Yes Gastroenterology - PN: Subj Interval history: CC: Choledocholithiasis with acute cholecystitis Patient is seen, awake and alert with daughter at bedside. States he did not feel well overnight and was complaining of increased abdominal pain with nausea. He was also noted to be febrile with a temperature up to 102.9 last night however is afebrile this morning. No lab work noted to be repeated today. On his last labs his lipase had normalized. LFTs are slowly trending downward. He is status post laparoscopic cholecystectomy on yesterday. Patient states he is having some colitis but he has not had a bowel movement since last Sunday. He has a KUB ordered for this morning due to abdominal discomfort and decreased bowel sounds. Abdomen is soft, tender to palpation. ROS: Denies shortness breath or chest pain Exam (Progress Note) - Constitutional Vitals: Period Temp Pulse Resp BP Sys/Garber Pulse Ox Last 24 Hr 96.7 F-102.9 F 57-78 16-24 105-149/59-85 91-100 General appearance: normal weight, no acute distress - Head Head exam: Present: normal inspection, normocephalic - Eye Eye exam: Present: other (Lids and conjunctive are unremarkable). Absent: scleral icterus - ENT ENT exam: Present: normal exam, normal oropharynx - Neck Neck exam: Present: normal inspection - Respiratory Respiratory exam: Present: clear to auscultation bilaterally. Absent: rales, rhonchi, wheezes - Cardiovascular Cardiovascular exam: Present: regular rate and rhythm. Absent: diastolic murmur , JVD, systolic murmur - GI/Abdominal GI/Abdominal exam: Present: normal bowel sounds, soft. Absent: ascites, distended, mass, organomegaly, tenderness - Extremities Exam Extremities exam: Present: normal inspection, full ROM - Back Exam Back exam: Present: normal inspection - Neurological Exam Neurological exam: Present: alert, oriented X3 - Psychiatric Psychiatric exam: Present: normal affect, normal mood - Skin Skin exam: Present: normal color, warm, dry Results - Labs CBC & BMP: 11/25/16 04:53 11/26/16 05:42 Lab Results: I have reviewed the past 24 hour labs Specialty Discharge - Follow Up or Referrals Follow up with: Jorge Scott MD [Physician] - 2 Weeks <Leo Hightower - Last Filed: 11/27/16 17:22> Exam (Progress Note) - Constitutional Vitals: Period Temp Pulse Resp BP Sys/Garber Pulse Ox Last 24 Hr 96.7 F-102.9 F 58-78 15-24 105-142/59-84 91-99 Results - Labs CBC & BMP: 11/27/16 12:09 11/27/16 12:10
[2016-11-27] MEDS: DEXTROSE 5% NACL 0.45% 1,000 ML IV SCH (11:15)
--- NOTE | 2016-11-27 11:49 | XRay Report ---
XR KUB Clinical Information: Abdominal Pain possible ileus or small bowel obstruction Comparison: CT abdomen pelvis dated 11/23/2016 Findings: Diffuse colonic dilatation is noted throughout the abdomen/pelvis, which is primarily gas-filled. Minimal stool is noted within the right hemicolon. There is also mild small bowel dilatation centrally although the small bowel is otherwise poorly opacified/visualized with air. There is no definite free air identified. Cholecystectomy clips are noted. No abnormal focal soft tissue masses or calcific densities are identified in the abdomen or pelvis. Lung bases appear predominantly clear. There is no acute osseous abnormality. No suspicious osseous lesions are identified. Impression: Mild diffuse gas-filled colon, which is nonspecific but may represent a fecal stasis/constipation pattern. No definite small bowel obstruction or free air. Continued clinical and imaging follow-up is recommended. PROCEDURE INTERPRETED AT [facility] DEPARTMENT OF RADIOLOGY Final Report Signed by: Josué Tomlin
--- NOTE | 2016-11-27 12:02 | Event Note ---
General Surgery Progress Note Chief complaint This patient is a 71-year-old man admitted with biliary pancreatitis and cholecystitis treated with ERCP and sphincterotomy followed by an interval laparoscopic cholecystectomy on 11/26/2016 Interval history Patient had a fever last night 102.9. He is afebrile this morning. His vital signs are normal this morning. He tolerated dinner last night but is having a little bit of nausea this morning and he is more distended today. He is passing gas but has not had a bowel movement yet. Physical exam Patient is currently afebrile but did have fever to 102.9 last night. His vital signs are normal this morning Abdomen is distended and a little bit more tender than typical postoperative tenderness. There is a little bit of bruising around the midepigastric incision but no erythema or drainage. Hypoactive bowel sounds are present. Labs Pending Imaging KUB shows a gas-filled colon with some small bowel loops also have air in them consistent with ileus Assessment and plan We will check some labs today and continue IV fluids. Increase activity and weight adequate return of bowel function. Repeat labs again tomorrow
[2016-11-27 12:18] LABS: Basophils % 0.2 % (0.0-0.8); Hematocrit 39.5 VOL% (42.0-52.0); Hemoglobin 13.5 GM/DL (14.0-18.0); Immature Granulocytes % 0.3 %; Immature Granulocytes Absolute 0.03 #; Lymphocytes % 10.7 % (21.2-54.2); Mean Corpuscular HGB Conc 34.2 GM/DL (32-36); Mean Corpuscular Hemoglobin 30 PG (27-34); Mean Corpuscular Volume 87.4 FL (87-102); Mean Platelet Volume 9.5 FL (9.6-12.0); Monocytes # 0.9 10*3/uL (0.11-0.8); Monocytes % 9.6 % (1.7-12.7); Neutrophils # 7.5 10*3/uL (1.4-7.4); Neutrophils % 79.2 % (38.7-73.9); Platelet Count 228 T/CUMM (130-400); Red Blood Count 4.52 MC/CUMM (3.8-5.5); Red Cell Distribution Width 13.2 % (9.3-17.3); White Blood Count 9.5 T/CUMM (4-12)
[2016-11-27 12:52] LABS: Albumin 2.3 G/DL (3.4-5.0); Bilirubin,Total 1.1 MG/DL (0.2-1.0); Calcium 8.1 MG/DL (8.5-10.1); Osmolality,Calculated 274.8 MOS/KG (273-304); Potassium 4.3 MMOL/L (3.5-5.1); Total Protein 5.5 G/DL (6.4-8.3)
[2016-11-27 14:37] LABS: Apearance,Urine CLEAR (Clear); Bilirubin,Urine Negative (Negative); Blood, Urine Negative (Negative); Glucose,Urine (UA) Negative (Negative); Ketones,Urine Negative (Negative); Mucus,Urine Occasional /LPF (Occasional); Nitrite,Urine Negative (Negative); Protein,Urine Negative; RBC,Urine <1 /HPF (0-4); Squamous Epithelial Cell,Urine Occasional /HPF (0-10); Urine Color Yellow (Yellow); Urine Specific Gravity 1.011 (1.001-1.035); Urine Urobilinogen < 2.0 EU/DL (0.2-1.0); WBC,Urine 1 /HPF (0-6)
[2016-11-27] MEDS: oxyCODONE/ACETAMINOPHEN 5-325 MG TABLET PO PRN ×2 (14:50→18:25)
[2016-11-27] MEDS: AMITRIPTYLINE 75 MG TABLET PO SCH (20:26)
[2016-11-27] MEDS: ZALEPLON 5 MG CAPSULE PO SCH (20:26)
[2016-11-28] MEDS: HYDROmorphone 2 MG/1 ML VIAL IV PRN ×2 (01:01→13:09)
[2016-11-28] MEDS: DEXTROSE 5% NACL 0.45% 1,000 ML IV SCH (01:21)
[2016-11-28] MEDS: ALBUTEROL/IPRATROPIUM 3 ML NEB RESP TX SCH ×4 (01:33→18:50)
[2016-11-28 06:48] LABS: Basophils % 0.4 % (0.0-0.8); Hematocrit 41.4 VOL% (42.0-52.0); Hemoglobin 13.9 GM/DL (14.0-18.0); Immature Granulocytes % 0.4 %; Immature Granulocytes Absolute 0.03 #; Lymphocytes # 1.2 10*3/uL (1.4-4.0); Lymphocytes % 15.9 % (21.2-54.2); Mean Corpuscular HGB Conc 33.6 GM/DL (32-36); Mean Corpuscular Hemoglobin 29 PG (27-34); Mean Corpuscular Volume 87.7 FL (87-102); Mean Platelet Volume 9.4 FL (9.6-12.0); Monocytes # 0.8 10*3/uL (0.11-0.8); Monocytes % 10.3 % (1.7-12.7); Neutrophils # 5.5 10*3/uL (1.4-7.4); Platelet Count 251 T/CUMM (130-400); Red Blood Count 4.72 MC/CUMM (3.8-5.5); White Blood Count 7.6 T/CUMM (4-12)
[2016-11-28 07:31] LABS: Albumin 2.4 G/DL (3.4-5.0); Bilirubin,Direct 0.3 MG/DL (0.0-0.20); Bilirubin,Indirect 0.3 MG/DL (0.0-1.0); Bilirubin,Total 0.6 MG/DL (0.2-1.0); Total Protein 5.8 G/DL (6.4-8.3)
[2016-11-28] MEDS: FLUTICASONE 50 MCG NASAL SPRAY 16 GM BOTTLE BOTH NARES SCH (08:34)
[2016-11-28] MEDS: PANTOPRAZOLE 40 MG VIAL IV SCH (08:36)
[2016-11-28] MEDS: amLODIPine 10 MG TABLET PO SCH (08:36)
[2016-11-28] MEDS: BACLOFEN 10 MG TABLET PO SCH ×3 (08:36→21:19)
[2016-11-28] MEDS: POTASSIUM CHLORIDE 20 MEQ TABLET PO SCH (08:47)
[2016-11-28] MEDS: DOCUSATE SODIUM 100 MG CAPSULE PO PRN ×2 (08:47→21:19)
--- NOTE | 2016-11-28 09:10 | Hospitalist Progress Note ---
Assessment and Plan (1) Fever Status: Acute Assessment and plan: Patient had fever at night before but has been afebrile for more than 24 hours. White count within normal limit. We will continue to watch urinalysis was negative for any suspicion of infection Current Visit: Yes (2) Acute pancreatitis due to calculus of common bile duct Status: Acute Assessment and plan: Lipase level improved and recent reading has been within normal limit Current Visit: Yes (3) Choledocholithiasis with acute cholecystitis Status: Acute Assessment and plan: Patient is status post ERCP and cholecystectomy. Patient now have ileus. Advised to avoid pain medicine as much possible continue to encourage mobility. Noted some alkalosis on chemistry probably due to volume depletion I will give IV fluid Current Visit: Yes (4) Elevated liver enzymes Status: Acute Assessment and plan: Due to biliary pancreatitis.,enzymes stable from yesterday Current Visit: Yes (5) Hypertension Status: Chronic Assessment and plan: Controlled Current Visit: Yes (6) Ileus following gastrointestinal surgery Status: Acute Assessment and plan: We will give IV fluids and watch clinically. Avoid narcotics as best possible and encourage mobility. Patient is also followed by Dr. Scott Current Visit: Yes Hospitalist: Subjective Interval history: Patient has no vomiting but still has no bowel movement he was passing gas he is not passing today although he is able to tolerate food. No fever overnight Exam - Constitutional Vitals: Period Temp Pulse Resp BP Sys/Garber Pulse Ox Last 24 Hr 96.9 F-98.6 F 58-73 15-20 111-142/57-74 94-99 General appearance: no acute distress - Respiratory Respiratory exam: Present: clear to auscultation bilaterally. Absent: rales, rhonchi - Cardiovascular Cardiovascular exam: Present: regular rate and rhythm. Absent: tachycardia - GI/Abdominal GI/Abdominal exam: Present: hypoactive bowel sounds, distended, tenderness ( Tenderness abdomen but no rigidity ), soft - Neurological Exam Neurological exam: Present: alert, oriented X3 Results - Labs CBC & BMP: 11/28/16 06:39 11/27/16 12:10 Lab Results: I have reviewed the past 24 hour labs Quality Measures - VTE Contraindication to Pharmacological VTE Prophylaxis: High Risk of Bleeding Specialty Discharge - Follow Up or Referrals Follow up with: Jorge Scott MD [Physician] - 2 Weeks
--- NOTE | 2016-11-28 09:25 | Event Note ---
General Surgery Progress Note Chief complaint This patient is a 71-year-old man admitted with biliary pancreatitis and cholecystitis treated with ERCP and sphincterotomy followed by an interval laparoscopic cholecystectomy on 11/26/2016 Interval history The patient had no fevers last night. He is eating better. He still has some nausea with eating. He is passing gas. Pain is improved. Labs this morning are all improving and stable Physical exam Patient is afebrile with normal vital signs this morning Abdominal exam reveals expected postoperative tenderness stable bruising of the midepigastric incision and no erythema or drainage. There are normal bowel sounds present. Labs Reviewed Imaging None new Assessment and plan Continue diet as tolerated Discharge home once tolerating adequate p.o. intake Follow-up with me in clinic in 2 weeks
[2016-11-28] MEDS ORDERED: SODIUM CHLORIDE 0.9% 1,000 ML IV SCH (09:30)
[2016-11-28] MEDS ORDERED: BISACODYL 10 MG SUPP RECTAL ONE (13:31)
[2016-11-28] MEDS: AMITRIPTYLINE 75 MG TABLET PO SCH (21:19)
[2016-11-28] MEDS: ZALEPLON 5 MG CAPSULE PO SCH (21:19)
[2016-11-28] MEDS: oxyCODONE/ACETAMINOPHEN 5-325 MG TABLET PO PRN (21:19)
[2016-11-29] MEDS: ALBUTEROL/IPRATROPIUM 3 ML NEB RESP TX SCH ×3 (00:10→13:05)
[2016-11-29 07:25] LABS: Calcium 8.9 MG/DL (8.5-10.1); Osmolality,Calculated 281.1 MOS/KG (273-304); Potassium 4.1 MMOL/L (3.5-5.1)
[2016-11-29] MEDS ORDERED: BISACODYL 10 MG SUPP RECTAL ONE (09:00)
[2016-11-29] MEDS ORDERED: POLYETHYLENE GLYCOL POWDER 17 GM PACK PO SCH (09:00)
[2016-11-29] MEDS: BACLOFEN 10 MG TABLET PO SCH (09:02)
[2016-11-29] MEDS: POTASSIUM CHLORIDE 20 MEQ TABLET PO SCH (09:02)
[2016-11-29] MEDS: PANTOPRAZOLE 40 MG VIAL IV SCH (09:02)
[2016-11-29] MEDS: amLODIPine 10 MG TABLET PO SCH (09:02)
--- NOTE | 2016-11-29 09:35 | Event Note ---
General Surgery Progress Note Chief complaint This patient is a 71-year-old man admitted with biliary pancreatitis and cholecystitis treated with ERCP and sphincterotomy followed by an interval laparoscopic cholecystectomy on 11/26/2016 Interval history Patient feels better today. He is tolerating regular diet with no nausea or vomiting. Afebrile Physical exam Patient is afebrile with normal vital signs this morning Abdominal exam is improved. Resolving bruise over the midepigastric incision. Minimal tenderness. Less distended. Labs None new Imaging None new Assessment and plan I am okay with discharge home today I instructed the patient to take MiraLAX at home until his bowels are moving. Follow-up in clinic in 2 weeks We already have placed a prescription on the patient's chart for pain medicine.
[2016-11-29] MEDS: FLUTICASONE 50 MCG NASAL SPRAY 16 GM BOTTLE BOTH NARES SCH (09:55)
--- NOTE | 2016-11-29 11:04 | Discharge Summary ---
Hospital Course - Hospital Course Hospital Course: Mr. Colbert is a 71-year-old male with history of hypertension chronic pain colon cancer admitted to hospital on 11/23/2016 with the history of abdominal pain nausea vomiting he was noted to have abnormal LFTs he has a normal lipase level but CT scan showed acute pancreatitis mild ileus cholelithiasis and a non- obstructing right kidney stone. His abdomen was tender. Patient was seen by GI and had ERCP and performed sphincterotomy and balloon stone extraction on . Later patient had the laparoscopic cholecystectomy on 11/26/[address] Scott. Patient LFT did improved during the stay in the hospital but still had some abnormal elevated transaminases total bilirubin is improved from 2.5 to 0.6. Patient did develop fever after the surgery but had a normal white count and fever did not recur for more than 48 hours blood culture from admission are negative. Patient did have nausea and vomiting following surgery with some possible Ileus post surgery. Patient progressively improved his abdominal pain is significantly resolved he is passing gases no abdominal distention. Seen by Dr. Scott and he is okay for him to go home. Lab review also showed patient had elevated bicarb level although he was on diuretics at home he it was stopped. I am not sure heat is because of volume depletion on he has underlying sleep apnea. On questioning he does report daytime somnolence. He has been on IV fluids stable hemodynamically. I have asked him to this stop Lasix at home and to stay hydrated. He need to have lab work repeated including liver function and BMP by primary care provider and consider sleep studies. Patient to follow-up by Dr. Scott in 2 weeks Diagnosis - Discharge Diagnosis (1) Fever Status: Resolved (2) Acute pancreatitis due to calculus of common bile duct Status: Acute (3) Choledocholithiasis with acute cholecystitis Status: Acute (4) Elevated liver enzymes Status: Acute (5) Hypertension Status: Chronic (6) Ileus following gastrointestinal surgery Status: Acute Specialty Discharge - Follow Up or Referrals Follow up with: Jorge Scott MD [Physician] - 12/13/16 2:15 pm Discharge Plan - Discharge Data Disposition: Disch To Home/Self Care Condition at Discharge: Stable Discharge Diet: advance to your usual diet Activity: resume usual activities as tolerated - Discharge Medications New Fluticasone 50 Mcg Nasal [place] [Flonase Nasal [place]] 1 spray BOTH NARES DAILY spray Polyethylene Glycol Powder [Miralax] 17 gm PO DAILY Docusate Sodium Cap [Colace Cap] 100 mg PO BID PRN capsule PRN Reason: Constipation Continue Amitriptyline [Elavil] 75 mg PO BEDTIME Eszopiclone 2 mg PO BEDTIME Baclofen 10 mg PO TID amLODIPine [Norvasc] 10 mg PO DAILY Changed Oxycodone HCl/Acetaminophen [Oxycodone-Acetaminophen 10-325] 1 tablet PO QID PRN #20 tablet PRN Reason: Pain Discontinued Potassium Chloride 20 meq PO DAILY Furosemide [Furosemide] 40 mg PO DAILY - Follow Up or Referral Follow Up: Jorge Scott MD [Physician] - 12/13/16 2:15 pm Shea Herrera MD [Physician] - - Forms/Instructions Exam - Constitutional Vitals: Period Temp Pulse Resp BP Sys/Garber Pulse Ox Last 24 Hr 96.8 F-99.0 F 62-95 17-69 117-149/62-78 92-98 General appearance: no acute distress, over weight - Head Head exam: Present: normal inspection, normocephalic, atraumatic - Eye Eye exam: Present: EOMI. Absent: conjunctival injection Pupils: Present: MIGUEL, normal accommodation - Respiratory Respiratory exam: Present: clear to auscultation bilaterally. Absent: rales, rhonchi - Cardiovascular Cardiovascular exam: Present: regular rate and rhythm. Absent: tachycardia - GI/Abdominal GI/Abdominal exam: Present: normal bowel sounds, tenderness (Significant decrease in tenderness on abdominal palpation), soft. Absent: distended - Extremities Exam Extremities exam: Present: normal inspection. Absent: edema - Neurological Exam Neurological exam: Present: alert, oriented X3 - Psychiatric Psychiatric exam: Present: normal affect, normal mood Discharge Results Procedures and tests throughout hospitalization: Pending Orders 11/24/16 11:41 Blood Culture Routine Labs on day of discharge: Labs from last 24 hours 11/29/16 11/29/16 11/28/16 08:31 06:27 15:22 Sodium 142 Potassium 4.1 Chloride 104 Carbon Dioxide 34 H Anion Gap 8.1 BUN 9 Creatinine 0.80 GFR Calculation 117 BUN/Creatinine Ratio 11.00 Glucose 95 POC Glucose 109 H 121 H Calculated Osmolality 281.1 Calcium 8.9 11/28/16 11:41 Sodium Potassium Chloride Carbon Dioxide Anion Gap BUN Creatinine GFR Calculation BUN/Creatinine Ratio Glucose POC Glucose 127 H Calculated Osmolality Calcium Preliminary micro results at discharge 11/24/16 11:41 Blood Culture - Preliminary Blood No growth at 3 days 11/24/16 11:41 Blood Culture - Preliminary Blood No growth at 3 days DS: Provider Date of admission: 11/23/16 15:27 Primary care physician: . No PCP Attending physician on admission: Hiren Harper MD Consults: 11/23/16 16:47 Consult to Physician [CONS] Routine Comment: pancreatitis w elev liver enzymes Consulting Provider: Leo Hightower When should Consulting Provider be notified: Now Consult to Specialist Group: Gastroenterology Person Notified: Dr Hightower Date Notified: 11/23/16 Time Notified: 18:54 Consult Notification Comment: Spoke with Dr Hightower was instructed not to call him after hours and the physician that ordered should call him. He does not want to be called after 5 o'clock. Call his office in the morning. 11/24/16 13:47 Consult to Physician [CONS] Routine Comment: gallstone pancreatitis, ercp today Consulting Provider: Jorge Scott When should Consulting Provider be notified: Now Person Notified: dr scott Date Notified: 11/24/16 Time Notified: 13:47 Discharging clinician: Haider Mcdonnell MD
[2016-11-29 12:27] VITALS: BP 118/66
== END 2016-11-29 16:29 | disposition home or self-care (01) | DRG 417 ==
LOC: N.ED 13:10 → N.EDINP 14:02 → SUATTDRO 15:27 → N.EDINP 17:50 → N.2E 18:01
PROVIDERS: ADMIT Internal Medicine; ATTEND Internal Medicine
PROC: ERCPWSP (ICD-10-PCS; 2016-11-24 14:05)
PROC: LAPCHOL (2016-11-26 10:06)